=== PATIENT | female | born 1990 | race Caucasian/White ===

== ENCOUNTER 2018-10-08 21:15 | Emergency (ER) | payer MEDICAID, SELFPAY ==
[2018-10-08] MEDS ORDERED: Sodium Chloride 0.9% 1,000 ML ONE (21:49)
[2018-10-08] MEDS ORDERED: Acetaminophen 325 MG Suppository ONE (22:03)
[2018-10-08] MEDS ORDERED: Acetaminophen 325 MG TAB ONE (22:03)
[2018-10-08 22:06] LABS: #Basophils 0.1 thou/uL (0.0-0.2); #Eosinphils 0.2 thou/uL (0.0-0.7); #Lymphocytes 2.2 thou/uL (1.20-3.40); #Monocytes 0.7 thou/uL (0.11-0.59); #Neutrophils 7.8 thou/uL (1.40-6.50); %Basophils 0.5 % (0.0-1.0); %Eosinophils 1.6 % (0.0-10.0); %Lymphocytes 20.1 % (21.0-51.0); %Monocytes 6.4 % (0.0-10.0); %Neutrophils 71.5 % (42.0-75.0); Hemoglobin 13.6 g/dL (12.0-16.0); Mean Corpuscular HGB CONC 33.8 g/dL (32.0-36.0); Mean Corpuscular Hemoglobin 31.3 pg (27.0-31.0); Mean Corpuscular Volume 92.6 fL (78.0-98.0); Mean Platelet Volume 9.8 fL (7.4-10.4); Platelet Count 181 thou/uL (130-400); RBC Distribution Width 11.7 % (11.5-14.5); Red Blood Cell (RBC) Count 4.36 mill/uL (4.20-5.40); White Blood Cell (WBC) Count 10.9 thou/uL (4.8-10.8)
[2018-10-08 22:18] LABS: Anion Gap 16 mmol/L (10-20); BUN (Urea Nitrogen) 15 mg/dL (7.0-18.7); Calc. Creatinine Clearance 0 mL/min (70-130); Calcium 9.7 mg/dL (7.8-10.44); Carbon Dioxide 20 mmol/L (22-29); Chloride 107 mmol/L (98-107); Estimated GFR-MDRD Greater than 90; Glucose 117 mg/dL (70-105); Potassium 3.5 mmol/L (3.5-5.1); Sodium 139 mmol/L (136-145)
== END 2018-10-08 23:15 | disposition home or self-care (01) ==
LOC: NAV ERS 21:15
DX: G97.1 Other reaction to spinal and lumbar puncture (principal)
CPT/HCPCS: 80048; 85025; 96360; J7050

== ENCOUNTER 2018-10-10 09:54 | Emergency (ER) | payer SELFPAY ==
[2018-10-10] MEDS ORDERED: Sodium Chloride 0.9% 1,000 ML ONE (10:34)
[2018-10-10] MEDS ORDERED: Acetaminophen 325 MG TAB ONE (10:38)
== END 2018-10-10 13:04 | disposition short-term general hospital (02) ==
LOC: NAV ERS 09:54
DX: G97.1 Other reaction to spinal and lumbar puncture (principal)
CPT/HCPCS: 96360; J7050

== ENCOUNTER 2019-12-31 16:20 | Emergency (ER) | payer MEDICAID, SELFPAY | END 2019-12-31 17:02 | disposition home or self-care (01) | LOC: NAV ERS 16:20 | DX: O99.512 Diseases of the respiratory system complicating pregnancy, second trimester (principal); J11.1 Influenza due to unidentified influenza virus with other respiratory manifestations; Z3A.15 15 weeks gestation of pregnancy | CPT/HCPCS: 99283 ==